=== PATIENT | female | born 1985 | race Hispanic/Latino ===

== ENCOUNTER 2018-09-06 10:14 | Day surgery (SDC) | payer OTHER ==
[2018-09-05 15:46] LABS: BASOPHILS % (AUTO) 0.5 % (0.0-5.0); EOSINOPHILS % (AUTO) 0.4 % (0.0-8.0); HEMATOCRIT 35.8 % (36-48); LYMPHOCYTES % (AUTO) 31.1 % (21.0-51.0); MEAN CORPUSCULAR HEMOGLOBIN 27.5 pg (27.0-33.0); MEAN CORPUSCULAR HGB CONC 33.2 g/dL (32.0-36.0); MEAN CORPUSCULAR VOLUME 82.7 fL (79-99); MONOCYTES % (AUTO) 7.4 % (3.0-13.0); NEUTROPHILS % (AUTO) 60.6 % (40.0-77.0); PLATELET COUNT (AUTO) 240 K/uL (130-400); RED BLOOD CELL COUNT(AUTO) 4.33 MIL/uL (4.00-5.50); RED CELL DISTRIBUTION WIDTH 12.8 % (11.0-15.5); WHITE BLOOD COUNT (AUTO) 4.6 K/uL (4.8-10.8)
[2018-09-05 15:56] VITALS: BP 107/63
[2018-09-05 15:59] LABS: CREATININE 0.7 mg/dL (0.5-1.5); POTASSIUM 4.2 mmol/L (3.5-5.1)
[2018-09-06] VITALS (15 sets, daily range): BP systolic 105–122; BP diastolic 46–77
[~2018-09-06] VITALS: Ht 167.6 cm; Wt 62.1 kg
[2018-09-06] MEDS: CEFAZOLIN SODIUM 1 GM VIAL IVP SCH ×2 (06:00→17:00)
[2018-09-06] MEDS ORDERED: LACTATED RINGERS 1000ML 1,000 ML IV ONE (11:48)
[2018-09-06] MEDS ORDERED: ACET325T51 PO (12:39)
[2018-09-06] MEDS ORDERED: ACET-48 PO (12:44)
[2018-09-06] MEDS ORDERED: EPINEPHRINE 1 MG/ML 30ML VIAL IJ ONE (14:30)
[2018-09-06] MEDS ORDERED: ONDANSETRON HCL 4 MG/2 ML VIAL ONE ×3 (16:45→19:54)
[2018-09-06] MEDS ORDERED: PROPOFOL 10 MG/ML 20ML VIAL IV ONE (16:45)
[2018-09-06] MEDS ORDERED: DEXAMETHASONE SOD PHOSPHATE 10MG/ML 1ML VIAL ONE (16:45)
[2018-09-06] MEDS ORDERED: LIDOCAINE PF 2% 5ML ABBOJECT ONE (16:45)
[2018-09-06] MEDS ORDERED: MIDAZOLAM HCL 1 MG/ML 2ML VIAL ONE (16:46)
[2018-09-06] MEDS ORDERED: FENTANYL CITRATE PF 50 MCG/1 ML 2ML VIAL ONE (16:46)
[2018-09-06] MEDS ORDERED: ROCURONIUM 10MG/1ML SYR 10 MG/ML ML ONE ×2 (16:46→17:52)
[2018-09-06] MEDS ORDERED: FENTANYL CITRATE PF 50 MCG/1 ML 5ML AMP IV ONE (17:22)
[2018-09-06] MEDS ORDERED: NEOSTIGMINE 5MG/5ML SYR IV ONE (18:58)
[2018-09-06] MEDS ORDERED: GLYCOPYRROLATE 1 MG/5 ML SYRINGE ONE (18:58)
[2018-09-06] MEDS ORDERED: ROPIVACAINE 0.5% 5MG/ML 30ML IJ ONE (19:01)
[2018-09-06] MEDS ORDERED: HYDR473S51 PO (19:26)
[2018-09-06] MEDS ORDERED: METOCLOPRAMIDE 10 MG/2 ML VIAL ONE (19:41)
== END 2018-09-06 21:34 | disposition home or self-care (01) ==
LOC: DAH 10:14
PROVIDERS: ATTEND Orthopaedic Surgery
DX: M75.101 Unspecified rotator cuff tear or rupture of right shoulder, not specified as traumatic (principal); M75.41 Impingement syndrome of right shoulder; Z79.899 Other long term (current) drug therapy; Z98.890 Other specified postprocedural states; G89.29 Other chronic pain; M54.5 Low back pain
CPT/HCPCS: 29826; 29827; 36415; 64415; 80048; 82948; 84703; 85025; A4565; A4649 ×5; A4930; A6204; C1713 ×2; G0168; J0171; J0690; J1100; J2001; J2250; J2405 ×3; J2704; J2710; J2765; J2795; J3010 ×2; J3490; J7030; J7120